=== PATIENT | female | born 1980 ===

== ENCOUNTER 2024-01-08 07:33 | Day surgery (SDC) | payer OTHER ==
[2024-01-08] MEDS ORDERED: fentaNYL CITRATE 50 MCG/ML AMPUL IV PUSH ONE (10:45)
[2024-01-08] MEDS ORDERED: MIDAZOLAM HCL 2 MG/2 ML VIAL IV ONE (10:45)
[2024-01-08] MEDS ORDERED: DIPHENHYDRAMINE HCL 50 MG/ML VIAL 1ML IV ONE (10:45)
== END 2024-01-08 12:15 | disposition home or self-care (01) ==
LOC: AMB-ENDOS 07:33
PROVIDERS: ATTEND Colon & Rectal Surgery
DX: K62.5 Hemorrhage of anus and rectum (principal); R19.4 Change in bowel habit; K62.1 Rectal polyp; Z88.1 Allergy status to other antibiotic agents; Z88.0 Allergy status to penicillin